=== PATIENT | male | born 1990 | race Caucasian/White ===

== ENCOUNTER 2016-08-17 21:47 | Emergency (ER) | payer SELFPAY ==
[~2016-08-17] VITALS: Ht 165.1 cm; Wt 82.3 kg
[2016-08-17 21:52] VITALS: BP 120/53; PULSE 57; RESP 16; TEMP 97.6; O2SAT 97
[2016-08-17 22:08] VITALS: BP 133/96; PULSE 74; RESP 16; TEMP 98.3
[2016-08-17] MEDS ORDERED: ACETAMINOPHEN/HYDROcodone 325 MG/5 MG TAB PO ONE (22:15)
--- NOTE | 2016-08-17 22:32 | RADHPO ---
EXAM DATE/TIME: 08/17/2016 22:14 [place] COMPARISON: No previous studies available for comparison. INDICATIONS : Patient was stuck by a catfish tonight while fishing. MEDICAL HISTORY : None. SURGICAL HISTORY : None. ENCOUNTER: Initial ACUITY: 1 day PAIN SCORE: 8/10 LOCATION: Right Between first and second digit. FINDINGS: Marked soft tissue swelling is present with minimal subcutaneous air. Catfish spine is not identifie d. CONCLUSION: Negative for radiopaque foreign body. Johan Crawford MD FACR on August 17, 2016 at 22:29 Board Certified Radiologist. This report was verified electronically.
--- NOTE | 2016-08-17 22:34 | PD ---
HPI Chief Complaint: Bite or Sting Time Seen by Provider: 22:10 Travel History International Travel<30 days: No Contact w/Intl Traveler<30days: No Traveled to known affect area: No History of Present Illness HPI 25-year-old right-handed male presents to the emergency room for evaluation of catfish stabbing to his right hand that occurred 2 hours prior to arrival. Patient was removing the catfish from the fishing line when the johnny stuck into the thenar eminence. He pulled it out and states it appeared intact. He soaked his hand in warm salt water, applied ice, and applied heat without any relief in symptoms. He also flushed his hand out with fluid. Patient denies paresthesias or loss of range of motion. Last tetanus was a few years ago. [facility] Past Medical History Medical History: Denies Significant Hx Diminished Hearing: No Immunizations Current: Yes Tetanus Vaccination: < 5 Years Influenza Vaccination: No Past Surgical History Surgical History: No Previous Surgery Social History Alcohol Use: Yes (2XS WEEK) Tobacco Use: No Substance Use: No Allergies-Medications (Allergen,Severity, Reaction): Coded Allergies: No Known Allergies (Unverified , 08/17/16) Reported Meds & Prescriptions Reported Meds & Active Scripts Active No Active Prescriptions or Reported Medications Review of Systems Except as stated in HPI: all other systems reviewed are Neg Physical Exam Narrative GENERAL: Well-nourished, well-developed male in no acute distress. Afebrile. Ambulatory. SKIN: Focused skin assessment warm/dry. There is a 0.5 cm laceration with surrounding erythema in the space between the thumb and second digit. No drainage. HEAD: Normocephalic. EYES: No scleral icterus. No injection or drainage. NECK: Supple, trachea midline. No JVD or lymphadenopathy. CARDIOVASCULAR: Regular rate and rhythm without murmurs, gallops, or rubs. RESPIRATORY: Breath sounds equal bilaterally. No accessory muscle use. EXTREMITY: [Right hand extremely tender to palpation especially around the wound. Full range of motion in all joints. Extreme edema of the right hand. Less than 2 second capillary refill distally. PSYCHIATRIC: No delusional thought processes. No hallucinations. Data Data Last Documented VS Vital Signs Date Time Temp Pulse Resp B/P Pulse Ox O2 Delivery O2 Flow Rate FiO2 08/17/16 22:08 98.3 74 16 133/96 08/17/16 21:52 97 Orders Hand, Limited (2vws) (08/17/16 ) Acetamin-Hydrocod 325-5 Mg ([place] 5-325 (08/17/16 22:15) MDM Medical Decision Making Medical Screen Exam Complete: Yes Emergency Medical Condition: Yes Medical Record Reviewed: Yes Differential Diagnosis Marine animal sting versus cellulitis versus wound infection Narrative Course 25-year-old right-handed male presents to the emergency room for evaluation of a catfish johnny stabbing to the right hand. Patient believes that the catfish johnny appear to hold when he pulled it out. He had immediate pain, redness, and swelling. Physical exam reveals extreme edema, erythema of the right hand. It is extremely tender to palpation. There is a 0.5 cm laceration. Wound was thoroughly irrigated with saline. X-ray shows no evidence of foreign body. Patient given Lortab in the emergency room. Discharged with tramadol and prescription for Keflex. Told to follow up with a primary care physician or return forcing symptoms. He understands and agrees to plan. Diagnosis Primary Impression: Marine animal sting Qualified Code: T63.691A - Marine animal sting, accidental or unintentional, initial encounter Referrals: Primary Care Physician Patient Instructions: General Instructions, Marine Animal Bite or Sting (ED) Additional Instructions: Rest and drink plenty of fluids. Keep wound clean and dry. Apply triple antibiotic ointment twice daily. Take tramadol as directed, as needed for pain. Take ibuprofen with food as directed, as needed for pain. Take Keflex as directed, until gone. Follow-up with a primary care physician. Return to the emergency room for worsening symptoms. Med/Other Pt SpecificInfo: Prescription(s) given Scripts No Active Prescriptions or Reported Meds Disposition: 01 DISCHARGE HOME Condition: Stable Karley Martin August 17, 2016 22:34
[2016-08-17] MEDS ORDERED: CEPH-460 PO (22:35)
[2016-08-17] MEDS ORDERED: TRAM50TA PO (22:35)
== END 2016-08-17 22:42 | disposition home or self-care (01) ==
LOC: PHEFT 21:47
DX: S61.431A Puncture wound without foreign body of right hand, initial encounter (principal); W56.51XA Bitten by other fish, initial encounter; Y93.89 Activity, other specified
CPT/HCPCS: 73120; 99283